=== PATIENT | male | born 1985 | race Caucasian/White ===

== ENCOUNTER 2021-06-07 05:53 | Day surgery (SDC) | payer OTHER ==
[2021-06-01 15:27] VITALS: BMI 22.5
[2021-06-07] MEDS ORDERED: BUPIVACAINE HCL 100 ML ONE (07:11)
[2021-06-07] MEDS ORDERED: PROPOFOL 20 ML ONE ×2 (07:28)
[2021-06-07] MEDS ORDERED: MIDAZOLAM HCL 2 MG/2 ML SINGLE DOSE VIAL ONE (07:28)
[2021-06-07] MEDS ORDERED: DEXAMETHASONE SOD PHOSPHATE 4 MG/1 ML VIAL ONE ×2 (07:28→08:02)
[2021-06-07] MEDS ORDERED: ONDANSETRON 4 MG/2 ML VIAL ONE (07:28)
[2021-06-07] MEDS ORDERED: ceFAZolin SODIUM 1 GM VIAL ONE (07:58)
[2021-06-07] MEDS ORDERED: KETOROLAC TROMETHAMINE 30 MG/1 ML VIAL ONE (08:02)
[2021-06-07] MEDS ORDERED: oxyCODONE HCL 5 MG TABLET PO PRN (10:29)
[2021-06-07] MEDS ORDERED: ONDANSETRON 4 MG/2 ML VIAL IVPUSH PRN (10:29)
[2021-06-07] MEDS ORDERED: LACTATED RINGERS SOLUTION 1,000 ML IV SCH (10:30)
[2021-06-07 12:16] VITALS: TEMP 97.8
[2021-06-07 13:54] VITALS: BP 122/72; PULSE 58
== END 2021-06-07 11:15 | disposition home or self-care (01) ==
LOC: FASU 05:53
PROVIDERS: ATTEND Orthopaedic Surgery Sports Medicine
PROC: 0SBC4ZZ Excision of Right Knee Joint, Percutaneous Endoscopic Approach (ICD-10-PCS; principal; 2021-06-07 08:15)
DX: S83.241A Other tear of medial meniscus, current injury, right knee, initial encounter (principal); M65.861 Other synovitis and tenosynovitis, right lower leg; X58.XXXA Exposure to other specified factors, initial encounter; Y93.9 Activity, unspecified; Y92.9 Unspecified place or not applicable
CPT/HCPCS: 94760